=== PATIENT | female | born 1935 | race Caucasian/White ===

== ENCOUNTER 2016-11-11 06:40 | Day surgery (SDC) | payer OTHER ==
--- NOTE | ~2016-11-11 | EGD ---
EGD REPORT [facility] [address] [place]. [address] NAME: TESSY BABB : [birth year] STATUS : REG [facility]#: [id number] AGE: 81 ADM/REG DATE : 11/11/16 MR#: [id number] REPORT SERV DATE: 11/11/16 DICTATED BY: RAUL MUHAMMAD DATE: 11/11/16 REPORT STATUS : Draft [facility]: [facility] DATE: 11/11/16 Endoscopy Center Patient Name: Tessy Babb Date of : 1935 Attending MD: RAUL MUHAMMAD MD Procedure Date No Time: 11/11/2016 Procedure: Upper GI endoscopy Indications: Iron deficiency anemia Referring MD: TONJA GONGORA Medicines: Propofol per Anesthesia Complications: No immediate complications. Procedure: Pre-Anesthesia Assessment: - ASA Grade Assessment: III - A patient with severe systemic disease. After obtaining informed consent, the endoscope was passed under direct vision. Throughout the procedure, the patient's blood pressure, pulse, and oxygen saturations were monitored continuously. The GIF H190 [id number] was introduced through the mouth, and advanced to the third part of duodenum. The upper GI endoscopy was accomplished without difficulty. The patient tolerated the procedure well. Findings: Non-severe esophagitis was found at the gastroesophageal junction. The entire examined stomach was normal. The examined duodenum was normal. Impression: - Non-severe non-erosive esophagitis. - Normal stomach. - Normal examined duodenum. Procedure Code(s): --- Professional --- 43727, Esophagogastroduodenoscopy, flexible, transoral; diagnostic, including collection of specimen(s) by brushing or washing, when performed (separate procedure) Diagnosis Code(s): --- Professional --- K20.8, Other esophagitis D50.9, Iron deficiency anemia, unspecified CPT copyright 2013 [place] [employer]. All rights reserved. The codes documented in this report are preliminary and upon film touch up inspector review may EGD REPORT [facility] [address] [place]. [address] NAME: TESSY BABB : 33 STATUS : REG [facility]#: [id number] AGE: 81 ADM/REG DATE : 11/11/16 MR#: [id number] REPORT SERV DATE: 11/11/16 DICTATED BY: RAUL MUHAMMAD. DATE: 11/11/16 REPORT STATUS : Draft TRANSCRIBED BY: [employer] DATE: 11/11/16 be revised to meet current compliance requirements. Raul Muhammad MD RAUL MUHAMMAD MD 11/11/2016 9:39 AM This report has been signed electronically. Number of Addenda: 0 Note Initiated On: 11/11/2016 8:52 AM Scope Withdrawal Time 0 hours 0 minutes 0 seconds [address] [place] [address]
--- NOTE | ~2016-11-11 | EGD ---
EGD REPORT [facility] [address] [place]. [address] NAME: TESSY BABB : [birth year] STATUS : REG [facility]#: [id number] AGE: 81 ADM/REG DATE : 11/11/16 MR#: [id number] REPORT SERV DATE: 11/11/16 DICTATED BY: RAUL MUHAMMAD DATE: 11/11/16 REPORT STATUS : Draft [facility]ANSCRIBED BY: [facility] DATE: 11/11/16 Endoscopy Center Patient Name: Tessy Babb Date of : 1935 Attending MD: RAUL MUHAMMAD MD Procedure Date No Time: 11/11/2016 Procedure: Colonoscopy Indications: For therapy of colon polyps Referring MD: TONJA GONGORA Medicines: Propofol per Anesthesia Complications: No immediate complications. Procedure: Pre-Anesthesia Assessment: - ASA Grade Assessment: III - A patient with severe systemic disease. After I obtained informed consent, the scope was passed under direct vision. Throughout the procedure, the patient's blood pressure, pulse, and oxygen saturations were monitored continuously. The PCF [id number] was introduced through the anus and advanced to the terminal ileum. The colonoscopy was performed without difficulty. The patient tolerated the procedure well. The quality of the bowel preparation was excellent. Findings: A flat polyp was found in the proximal ascending colon. The polyp was 15 mm in size. The polyp was removed with a saline injection-lift technique using a hot snare. Resection and retrieval were complete using a snare. see dictation for further details Multiple large-mouthed diverticula were found in the sigmoid colon. Impression: - One 15 mm polyp in the proximal ascending colon. Resected and retrieved. - Diverticulosis in the sigmoid colon. Recommendation: - Return to previous diet today. - The patient will be observed post-procedure, until all discharge criteria are met. - Continue present medications. - Repeat colonoscopy for surveillance based on pathology results. - The findings and recommendations were discussed with the patient and their family. - After the procedure, if you experience any pain in abdomen or chest,shortness of breath,fever,chills,blood in stool,rectal bleeding,vomiting of any EGD REPORT [address] [address] NAME: TESSY BABB : 33 STATUS : REG [facility] PAT#: [id number] AGE: 81 ADM/REG DATE : 11/11/16 MR#: [id number] REPORT SERV DATE: 11/11/16 DICTATED BY: RAUL MUHAMMAD DATE: 11/11/16 REPORT STATUS : Draft TRANSCRIBED BY: [employer] DATE: 11/11/16 material,nausea,black stools or weakness or dizziness, GO TO THE EMERGENCY IMMEDIATELY!!!!!!!!! Procedure Code(s): --- Professional --- 01904, Colonoscopy, flexible, proximal to splenic flexure; with removal of tumor(s), polyp(s), or other lesion(s) by snare technique 67344, Colonoscopy, flexible, proximal to splenic flexure; with directed submucosal injection(s), any substance Diagnosis Code(s): --- Professional --- D12.2, Benign neoplasm of ascending colon K57.30, Diverticulosis of large intestine without perforation or abscess without bleeding K63.5, Polyp of colon CPT copyright 2013 [employer]. All rights reserved. The codes documented in this report are preliminary and upon permastone applicator review may be revised to meet current compliance requirements. Raul Muhammad MD RAUL MUHAMMAD MD 11/11/2016 9:43 AM This report has been signed electronically. Number of Addenda: 0 Note Initiated On: 11/11/2016 8:44 AM Scope Withdrawal Time 0 hours 28 minutes 31 seconds [id number] [place] [id number]
--- NOTE | ~2016-11-11 | OP ---
Record Of Operation [facility] [address] [place] [address] NAME: TESSY BABB : 33 STATUS : REG [facility]#: [id number] AGE: 81 ADM/REG DATE : 11/11/16 MR#: [id number] REPORT SERV DATE: 11/11/16 DICTATED BY: RAUL MUHAMMAD DATE: 11/11/16 REPORT STATUS : Draft TRANSCRIBED BY: [employer] DATE: 11/11/16 DATE OF PROCEDURE: 11/11/2016 ADDENDUM: PROCEDURE: Colonoscopy, polypectomy, hot biopsy. 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 SEDATION: Diprivan. FINDINGS: The Olympus scope was passed through the cecum. In the very proximal ascending colon on the medial wall, there was this flat polyp that probably took up 20% of the bowel wall. The area was lifted with saline. A large portion was snared off. There was an area on the backside of the fold that could not be snared or lifted. This was removed with hot biopsy forceps. The area appeared to be totally removed or totally biopsied and fulgurated. There were also many large sigmoid diverticula. IMPRESSION: Piecemeal resection of the flat very proximal ascending colon polyp. It was on the medial wall on the first valve distal to the cecum. It was removed with combination of saline lift, hot snare, and hot biopsy with fulguration. PLAN: Recheck in 6-12 months. MG/CINDA Raul Muhammad M.D. / [id number] CC: Dianne Wellington M.D.
[~2016-11-11 06:40] MED LIST: ALTA5 PO; ASAB PO; BRILINTA90 MG PO; CEREFOLI1 PO; CREON DR 36,001 EACH PO; ICAPS AREDS SO1 EACH PO; IMDUR30 PO; L20 PO; LIPITOR20 PO; LIPITOR40 PO; LUTEIN OR; NITROSTAT0.4 MG SL; P20 PO; PRESERVISION A1 EACH PO; TEARS NATURA OPH; TOPXL50 PO; VITAMIN B PO; VITAMIN D1000 UNI1 PO; WELLXL300 PO; ZOL100 PO
== END 2016-11-11 23:59 | disposition home or self-care (01) ==
LOC: DMU 06:40
PROVIDERS: Internal Medicine Gastroenterology
PROC: 3E0H8GC Introduction of Other Therapeutic Substance into Lower GI, Via Natural or Artificial Opening Endoscopic (ICD-10-PCS; principal; 2016-11-11 09:00)
PROC: 0DJ08ZZ Inspection of Upper Intestinal Tract, Via Natural or Artificial Opening Endoscopic (ICD-10-PCS; 2016-11-11 09:00)
PROC: 0DBK8ZX Excision of Ascending Colon, Via Natural or Artificial Opening Endoscopic, Diagnostic (ICD-10-PCS; 2016-11-11 09:00)
DX: Z12.11 Encounter for screening for malignant neoplasm of colon (principal); D12.2 Benign neoplasm of ascending colon; K57.30 Diverticulosis of large intestine without perforation or abscess without bleeding; D50.9 Iron deficiency anemia, unspecified; I25.10 Atherosclerotic heart disease of native coronary artery without angina pectoris; Z95.5 Presence of coronary angioplasty implant and graft; Z88.0 Allergy status to penicillin; Z88.1 Allergy status to other antibiotic agents; Z88.5 Allergy status to narcotic agent; Z88.8 Allergy status to other drugs, medicaments and biological substances; Z79.899 Other long term (current) drug therapy
CPT/HCPCS: 88305